=== PATIENT | male | born 1980 | race Two or more races ===

== ENCOUNTER 2020-06-21 19:26 | Emergency (ER) | payer SELFPAY ==
[~2020-06-21] VITALS: Ht 172.7 cm; Wt 95.0 kg
[2020-06-21 19:42] VITALS: BP 168/95
[2020-06-21] MEDS ORDERED: HYDR25TA PO (19:58)
[2020-06-21] MEDS ORDERED: FAMO20TA5 PO (19:58)
[2020-06-21] MEDS ORDERED: PRED-220 PO (19:58)
--- NOTE | 2020-06-21 19:58 | PHYS DOC ---
Past Medical History Past Medical History: No Pertinent History Past Surgical History: No Surgical History Smoking Status: Never Smoker Alcohol Use: Rarely General Adult EDM: Chief Complaint: ITCHING HPI: HPI: Patient is a 39 year old male who presents with poison teresa rash that began a week ago. Patient reports using calamine lotion with no relief Review of Systems: Review of Systems: Constitutional: Denies fever or chills. [] Musculoskeletal: Denies back pain or joint pain. [] Integument: Reports poison teresa rash Neurologic: Denies headache, focal weakness or sensory changes. [] Psychiatric: Denies depression or anxiety. [] Heart Score: C/O Chest Pain: N/A Risk Factors: Risk Factors: DM, Current or recent (<one month) smoker, HTN, HLP, family history of CAD, obesity. Risk Scores: Score 0 - 3: 2.5% MACE over next 6 weeks - Discharge Home Score 4 - 6: 20.3% MACE over next 6 weeks - Admit for Clinical Observation Score 7 - 10: 72.7% MACE over next 6 weeks - Early Invasive Strategies Current Medications: Current Medications Medications (Trade) Dose Ordered Sig/Josue Start Time Stop Time Status Last Admin Dose Admin Famotidine (Pepcid) 20 mg 1X ONCE 06/21/20 20:00 06/21/20 20:01 UNV Prednisone (Prednisone) 60 mg 1X ONCE 06/21/20 20:00 06/21/20 20:01 UNV Physical Exam: PE: Constitutional: Well developed, well nourished, no acute distress, non-toxic appearance. Skin: Mild erythematous linear papular rash on patient's bilateral upper extremities, lower extremities, chest, patient reports the rash is also in the groin, trace amount of similar rash on the nose Back: No tenderness, no CVA tenderness. [] Extremities: No tenderness, no cyanosis, no clubbing, ROM intact, no edema. [] Neurologic: Alert and oriented X 3, normal motor function, normal sensory function, no focal deficits noted. [] Psychologic: Affect normal, judgement normal, mood normal. [] Current Patient Data: Vital Signs: Vital Signs Date Time Temp Pulse Resp B/P (MAP) Pulse Ox O2 Delivery O2 Flow Rate FiO2 06/21/20 19:31 98.4 16 179/96 (123) 97 Room Air 98.4 EKG: EKG: [] Radiology/Procedures: Radiology/Procedures: [] Course & Med Decision Making: Course & Med Decision Making Pertinent Labs and Imaging studies reviewed. (See chart for details) This is a 39-year-old male patient presented to the ED today with present IV rash. Patient was started on prednisone taper dose. Also given prescription for hydroxyzine and Pepcid. Dragon Disclaimer: Dragon Disclaimer: This electronic medical record was generated, in whole or in part, using a voice recognition dictation system. Departure Departure Impression: Primary Impression: Contact dermatitis due to poison teresa Disposition: HOME / SELF CARE / HOMELESS Condition: STABLE Patient Instructions: Poison Teresa, [id number] Additional Instructions: You were seen for poison teresa rash. Use the prescribed medications as ordered. Follow-up with your own doctor in 2 to 4 weeks Scripts Famotidine (FAMOTIDINE) 20 Mg Tablet 20 MG PO DAILY, #7 TAB Prov: KORIN SAMAYOA APRN 06/21/20 Prednisone (PREDNISONE ) 10 Mg Tablet 10 MG PO UD for PREDNISONE TAPER, #39 TAB 0 Refills Take 3 tablets by mouth twice a day for 3 days, then take 2 tablets by mouth twice a day for 3 days, then take 1 tablet by mouth twice a day for 3 days, then take 1 tablet by mouth daily x 3 days, then stop. Prov: KORIN SAMAYOA APRN 06/21/20 Hydroxyzine Hcl (HYDROXYZINE HCL) 25 Mg Tablet 1 TAB PO TID PRN for ITCHING, #90 TAB 2 Refills Prov: KORIN SAMAYOA APRN 06/21/20 KORIN SAMAYOA APRN Jun 21, 2020 19:58
[2020-06-21] MEDS: predniSONE 20 MG TABLET PO ONE (19:59)
[2020-06-21] MEDS: FAMOTIDINE 20 MG TABLET. PO ONE (20:00)
[2020-06-21] MEDS: CETIRIZINE HCL 10 MG TABLET. PO STA (20:00)
== END 2020-06-21 20:14 | disposition home or self-care (01) ==
LOC: ER 19:26
DX: L23.7 Allergic contact dermatitis due to plants, except food (principal)
CPT/HCPCS: 99284; J7512